=== PATIENT | female | born 1960 | race Hispanic/Latino ===

== ENCOUNTER 2020-12-06 11:10 | Emergency (ER) | payer BC, OTHER ==
[~2020-12-06] VITALS: Ht 152.4 cm; Wt 68.0 kg
[~2020-12-06 11:10] MED LIST: AMLODIPINE BESY10 MG PO; BACTRIM 400-801 EACH PO; CENTRUM SILVER1 EAC1 PO; FERROUS SULFATE 65 MG PO; FUROSEMIDE20 MG PO; NEORAL25 MG PO; PREDNISONE2.5 MG PO; RAPAMUNE1 MG PO
[2020-12-06] MEDS ORDERED: ACETAMINOPHEN-1 EAC4 PO (11:30)
[2020-12-06] MEDS ORDERED: IBUPROFEN 200 MG TAB PO ONE (11:30)
[2020-12-06] MEDS ORDERED: ONDANSETRON HCL 4 MG ORAL DISINTEGRATING TAB PO ONE (11:30)
[2020-12-06] MEDS ORDERED: HYDROCODONE/APAP 5MG-325MG TAB PO ONE (11:30)
[2020-12-06] MEDS ORDERED: ONDANSETRON HCL 4 MG ORAL DISINTEGRATING TAB ONE (11:44)
[2020-12-06] MEDS ORDERED: IBUPROFEN 600 MG TAB ONE (11:45)
[2020-12-06] MEDS ORDERED: HYDROCODONE/APAP 5MG-325MG TAB ONE (11:45)
[2020-12-06] MEDS ORDERED: CARVEDILOL3.125 MG PO (11:53)
[2020-12-06] MEDS ORDERED: POTASSIUM CITR10 MEQ PO (11:53)
[2020-12-06] MEDS ORDERED: CRESTOR10 MG PO (11:53)
[2020-12-06] MEDS ORDERED: IRBESARTAN150 MG PO (11:53)
== END 2020-12-06 12:28 | disposition home or self-care (01) ==
LOC: FSED 11:14
DX: S93.402A Sprain of unspecified ligament of left ankle, initial encounter (principal); X50.1XXA Overexertion from prolonged static or awkward postures, initial encounter; Y93.01 Activity, walking, marching and hiking; Y92.008 Other place in unspecified non-institutional (private) residence as the place of occurrence of the external cause; D64.9 Anemia, unspecified; K21.9 Gastro-esophageal reflux disease without esophagitis; Z94.0 Kidney transplant status
CPT/HCPCS: 29405; 73610; 99284; Q0162

== ENCOUNTER → 2024-05-23 | Day surgery (SDC) | payer BC, OTHER ==
[~2024-05-23] MED LIST changes: +ACETAMINOPHEN-1 EAC4 PO; +CARVEDILOL3.125 MG PO; +CRESTOR10 MG PO; +IRBESARTAN150 MG PO; +LACTATED RINGER'S 1,000 ML ONE; +LIDOCAINE HCL 2% LOCAL INJ 5 ML SDV VIAL INJ ONE; +METFORMIN HCL500 MG PO; +PHENYLEPHRINE HCL 1% 10 MG/ML VIAL ONE; +POTASSIUM CITR10 MEQ PO; +PROPOFOL IV EMULSION 10 MG/ML 20 ML VIAL ONE; +PROPOFOL IV EMULSION 50 ML IV ONE; +TESTOSTERONE SHOT
[2024-05-23] MEDS: LACTATED RINGER'S 1,000 ML BAG IV ONE (11:26)
[2024-05-23 11:29] LABS: BASOPHILS # (AUTO) 0.1 (0.0-0.1); BASOPHILS % 0.9 % (0.0-1.0); EOSINOPHILS % 0.4 % (0.0-6.0); HEMATOCRIT 44.9 % (34.2-44.1); HEMOGLOBIN 13.7 g/dL (12.0-16.0); LYMPHOCYTES % 12.8 % (18.0-39.1); MEAN CORPUSCULAR HEMOGLOBIN 29.5 pg (28-32); MEAN CORPUSCULAR HGB CONC 30.5 g/dL (31-35); MEAN CORPUSCULAR VOLUME 96.6 fL (81-99); MONOCYTES # (AUTO) 0.3 (0.2-0.8); MONOCYTES % 3.5 % (4.4-11.3); NEUTROPHILS # (AUTO) 6.1 (2.1-6.9); PLATELET COUNT 193 x10e3/uL (140-360); RED BLOOD COUNT 4.65 x10e6/uL (3.6-5.1); RED CELL DISTRIBUTION WIDTH 13.2 % (11.7-14.4); WHITE BLOOD COUNT 7.44 x10e3/uL (4.8-10.8)
[2024-05-23 11:49] LABS: CALCIUM 10.2 mg/dL (8.4-10.2); CREATININE, SERUM 1.19 mg/dL (0.57-1.11)
[2024-05-23 12:24] VITALS: TEMP 97.8
[2024-05-23 12:35] VITALS: BP 114/60; PULSE 75; RESP 16; O2SAT 99
== END | disposition home or self-care (01) ==
LOC: OR 10:39
PROVIDERS: ATTEND Surgery
DX: Z12.11 Encounter for screening for malignant neoplasm of colon (principal); D12.5 Benign neoplasm of sigmoid colon; K64.4 Residual hemorrhoidal skin tags; K21.9 Gastro-esophageal reflux disease without esophagitis; K44.9 Diaphragmatic hernia without obstruction or gangrene; Z71.3 Dietary counseling and surveillance; E11.9 Type 2 diabetes mellitus without complications; I10 Essential (primary) hypertension; Z71.89 Other specified counseling; E78.5 Hyperlipidemia, unspecified; Z01.810 Encounter for preprocedural cardiovascular examination; Z79.84 Long term (current) use of oral hypoglycemic drugs; Z79.899 Other long term (current) drug therapy; Z68.25 Body mass index [BMI] 25.0-25.9, adult; Z94.0 Kidney transplant status
CPT/HCPCS: 36415; 45385; 80048; 85025; 93005; J2003; J2371; J2704; J7121; 45378; 45380